=== PATIENT | female | born 1980 | race Caucasian/White ===

== ENCOUNTER → 2016-07-19 | Outpatient (CLI) | payer BC ==
[~2016-07-19] MED LIST: ASPI81TA28 PO; DIPH25CA65 PO; EFF75 PO; MIDO2.5T PO; MONT1TAB3 PO; SUMA25TA12 PO; TRAM-10 PO
--- NOTE | 2016-07-19 17:25 | ECHOCARDIOGRAM REPORT ---
*NOTICE TO RECEIVING CONSTITUTION PARTY AGENCY This information is strictly Confidential and protected under [place] law. [place] law prohibits you from making any further disclosure of this information unless further disclosure is expressly permitted by the written consent of the person to whom it pertains or is authorized by law. A general authorization for the release of medical or other information is not sufficient for this purpose. Hospital accepts no responsibility if the information is made available to any other person, INCLUDING THE PATIENT. Interpretation Summary * Name: JUDIE MEIER Study Date: 07/19/2016 01:13 PM BP: 133/82 mmHg * Patient Location: [facility] HR: 86 * : 1980 (M/d/yyyy) Gender: Female Height: 66 in * Age: 36 yrs Ethnicity: [place] Weight: 132 lb * Ordering Physician: JARET LOUIE MD * Referring Physician: Jaret Louie * Performed By: Mercedes Sutherland * * Reason For Study: STRUCTURAL HEART DISEASE * BSA: 1.7 m2 * The study was technically adequate. * Compared to prior study, there is no significant change. * -- Conclusions -- * Left ventricular systolic function is normal. * Ejection Fraction = 55-60%. * Pulse wave TDI of the anterior and posterior mitral annulas demonstrates normal LV relaxation * No significant valvular pathology. * The interatrial septum was inadequately visualized. Procedure Details * A complete two-dimensional transthoracic echocardiogram was performed (2D, M-mode, Doppler and color flow Doppler). Left Ventricle * The left ventricle is normal in size. * There is no thrombus. * There is normal left ventricular wall thickness. * Ejection Fraction = 55-60%. * Left ventricular systolic function is normal. * The left ventricular wall motion is normal. Right Ventricle * The right ventricle is normal size. * The right ventricular systolic function is normal as assessed by tricuspid annular plane systolic excursion (TAPSE) (normal >1.5 cm). Atria * The left atrial size is normal. * Right atrial size is normal. * The interatrial septum was inadequately visualized. Mitral Valve * The mitral valve is normal. * There is no mitral valve stenosis. * Significant mitral regurgitation is absent. Tricuspid Valve * The tricuspid valve is normal. * There is no tricuspid stenosis. * There is mild tricuspid regurgitation. Aortic Valve * The aortic valve is trileaflet. * Aortic stenosis is absent. * There is no significant aortic regurgitation. Pulmonic Valve * The pulmonary valve is not well seen, but the Doppler examination is normal without significant regurgitation or stenosis. Great Vessels * The aortic root is normal size. Pericardium/Pleural * There is no pericardial effusion. Great Vessels * Normal inferior vena cava diameter and respiratory variation suggests normal central venous pressure. Left Ventricular Diastolic Function * Pulse wave TDI of the anterior and posterior mitral annulas demonstrates normal LV relaxation MMode 2D Measurements and Calculations IVSd 0.87 cm IVSs 1.2 cm LVIDd 4.4 cm LVIDs 3.0 cm LVPWd 0.62 cm LVPWs 1.3 cm IVS/LVPW 1.4 FS 31.8 % EDV(Teich) 89.1 ml ESV(Teich) 35.7 ml EF(Teich) 60.0 % EDV(cubed) 87.0 ml ESV(cubed) 27.6 ml EF(cubed) 68.2 % % IVS thick 38.5 % % LVPW thick 113.9 % LV mass(C)d 101.0 grams LV mass(C)dI 60.3 grams/m\S\2 LV mass(C)s 120.3 grams LV mass(C)sI 71.8 grams/m\S\2 CO(Teich) 4.6 l/min CI(Teich) 2.7 l/min/m\S\2 SV(Teich) 53.5 ml SI(Teich) 31.9 ml/m\S\2 CO(cubed) 5.1 l/min CI(cubed) 3.0 l/min/m\S\2 SV(cubed) 59.3 ml SI(cubed) 35.4 ml/m\S\2 ACS 1.3 cm LA dimension 2.7 cm asc Aorta Diam 1.9 cm LVOT diam 1.8 cm LVOT area 2.6 cm\S\2 LVAd ap4 29.3 cm\S\2 LVLd ap4 8.6 cm EDV(MOD-sp4) 82.0 ml LVAs ap4 17.1 cm\S\2 LVLs ap4 7.4 cm ESV(MOD-sp4) 33.0 ml EF(MOD-sp4) 59.8 % LVAd ap2 28.0 cm\S\2 LVLd ap2 8.2 cm EDV(MOD-sp2) 82.0 ml LVAs ap2 15.5 cm\S\2 LVLs ap2 6.6 cm ESV(MOD-sp2) 31.0 ml EF(MOD-sp2) 62.2 % CO(MOD-sp4) 4.2 l/min CI(MOD-sp4) 2.5 l/min/m\S\2 SV(MOD-sp4) 49.0 ml SI(MOD-sp4) 29.2 ml/m\S\2 CO(MOD-sp2) 4.4 l/min CI(MOD-sp2) 2.6 l/min/m\S\2 SV(MOD-sp2) 51.0 ml SI(MOD-sp2) 30.4 ml/m\S\2 Doppler Measurements and Calculations MV E max vira 75.1 cm/sec MV dec time 0.44 sec Ao V2 max 126.0 cm/sec Ao max PG 6.3 mmHg Ao max PG (full) 2.8 mmHg CHRISTIAN(V,A) 2.0 cm\S\2 CHRISTIAN(V,D) 2.0 cm\S\2 LV V1 max PG 3.5 mmHg LV V1 max 94.0 cm/sec PA V2 max 69.1 cm/sec PA max PG 1.9 mmHg PI end-d vira 97.7 cm/sec
== END | disposition home or self-care (01) ==
LOC: C.CPL 12:52
PROVIDERS: ATTEND Internal Medicine Clinical Cardiac Electrophysiology
DX: I48.91 Unspecified atrial fibrillation (principal); I51.9 Heart disease, unspecified

== ENCOUNTER → 2016-10-14 | Outpatient (CLI) | payer BC ==
[2016-10-18 06:19] LABS: ANA SCREEN NEGATIVE (NEGATIVE); DNA ds CRITHIDIA NEGATIVE (NEGATIVE); Rheumatoid Factor 10 IU/mL (<14); SSB Ab <1.0 NEG AI (<1.0 NEGATIVE); Scleroderma Ab <1.0 NEG AI (<1.0 NEGATIVE); Sm/RNP <1.0 NEG AI (<1.0 NEGATIVE)
== END | disposition home or self-care (01) ==
LOC: C.LAB 10:48
PROVIDERS: ATTEND Psychiatry & Neurology Neurology
DX: G43.709 Chronic migraine without aura, not intractable, without status migrainosus (principal); R20.2 Paresthesia of skin; M35.9 Systemic involvement of connective tissue, unspecified

== ENCOUNTER → 2016-12-23 | Outpatient (CLI) | payer BC ==
[~2016-12-23] MED LIST changes: -DIPH25CA65 PO; -EFF75 PO; -MIDO2.5T PO; -MONT1TAB3 PO
--- NOTE | 2017-01-06 16:18 | EEG Procedure Note ---
EEG Procedure Note Date of Service Dec 23, 2016. Start / End Times Start Time: 12/23/16 at 3:04pm End Time: 12/25/16 at 2:31pm Referring Physician Hazel Quresih History 36 year old female with seizure like activity. 48hr ambulatory EEG for further evaluation of possible seizure etiology and spell capture. Home Medication List Scheduled Aspirin (Aspirin Ec), 81 MG PO DAILY Sumatriptan Succinate (Imitrex), 25 MG PO PRN Scheduled PRN Tramadol (Ultram), 1 TAB PO Q6 PRN for Pain Description This is a 21 electrode ambulatory EEG with a single channel dedicated to limited EKG. The electrodes were placed in accordance with the International 10- 20 system. Good technical quality when asleep and fair technical quality when awake secondary to muscle and movement artifact. O2 disconnection artifact after 6am and O1 disconnection artifact after 8am on 12/24. Multiple lead disconnection artifact after 5am on 12/25 limiting read of EEG after this time. At the start of the recording the patient was in an awake state. The background was well organized and composed of symmetric mixed alpha and beta frequencies. There was a well formed symmetric moderate amplitude posterior dominant rhythm of 10-11Hz that was reactive to eye opening and closure. Sleep was indicated by vertex waves, symmetric sleep spindles, and slow wave sleep. Patient journal was not returned. Interpretation This is a normal 48hr ambulatory EEG There was no electrographic seizures or epileptiform discharges. Clinical Correlation A normal EEG does not rule out epilepsy if there is a strong clinical suspicion or for spell types not captured.
== END | disposition home or self-care (01) ==
LOC: C.NEUR 12:25
PROVIDERS: ATTEND Psychiatry & Neurology Neurology
DX: R56.9 Unspecified convulsions (principal)

== ENCOUNTER 2017-01-30 18:07 | Emergency (ER) | payer BC ==
[~2017-01-30] VITALS: Ht 167.6 cm; Wt 75.0 kg
[2017-01-30] MEDS ORDERED: ALBUT/IPRATROP 3MG/0.5MG NEB 3 ML VIAL INH STA (18:19)
[2017-01-30 18:20] VITALS: TEMP 36.8; Ht 167.6 cm; Wt 75.0 kg
[2017-01-30] MEDS ORDERED: SODIUM CHLORIDE 0.9% 500ML 500 ML IV STA (18:23)
[2017-01-30 18:26] VITALS: O2SAT 100
[2017-01-30 18:48] LABS: HEMATOCRIT 37.8 % (37-47); MEAN CELL VOLUME 96.4 fL (80-100); MEAN CORPUSCULAR HEMOGLOBIN 34.2 pg (25-34); MEAN CORPUSCULAR HGB CONC 35.4 g/dl (32-36); MEAN PLATELET VOLUME 9.2 fL (7.4-10.4); PLATELET COUNT 244 K/uL (130-400); RED BLOOD COUNT 3.92 M/uL (4.2-5.4); WHITE BLOOD COUNT 11.66 K/uL (4.8-10.8)
--- NOTE | 2017-01-30 18:57 | DIAGNOSTIC IMAGING REPORT ---
CHEST ONE VIEW PORTABLE CLINICAL HISTORY: Shortness of breath COMPARISON STUDY: 03/04/2016 FINDINGS: The cardiac and mediastinal contours are normal. There is no focal pulmonary consolidation. There is no failure. There are no pleural effusions.[ IMPRESSION: No active disease in the chest. Electronically signed by: Prosper Wallace M.D. 01/30/2017 6:56 PM Dictated Date/Time: 01/30/2017 6:55 PM
[2017-01-30 19:07] LABS: ALT/SGPT 21 U/L (12-78); BLOOD UREA NITROGEN 10 mg/dl (7-18); BUN/CREATININE RATIO 9.6 (10-20); CALCIUM 8.5 mg/dl (8.5-10.1); CARBON DIOXIDE 23 mmol/L (21-32); CHLORIDE 108 mmol/L (98-107); CREATININE 1.03 mg/dl (0.60-1.20); GLUCOSE 95 mg/dl (70-99); POTASSIUM 3.3 mmol/L (3.5-5.1); SODIUM 142 mmol/L (136-145)
[2017-01-30 19:12] LABS: ALB/GLOB RATIO 1.2 (0.9-2); ALKALINE PHOSPHATASE 57 U/L (45-117); AST/SGOT 20 U/L (15-37); CKMB/CK RATIO 1.6 (0-3.0)
[2017-01-30 19:14] LABS: COMPLETE YES; EOSINOPHIL % 0.9 %; LYMPH ABS # 2.73 K/uL (1.2-3.4); LYMPHOCYTE % 23.4 %; NEUTROPHILS % 58.6 %; VARIANT LYM ABS # 1.78 K/uL; VARIANT LYMPHOCYTE % 15.3 %
--- NOTE | 2017-01-30 22:28 | EMERGENCY ROOM VISIT NOTE ---
History Report prepared by Amairani: Michael Jorge Under the Supervision of: Dr. Steve Ramirez D.O. First contact with patient: 18:09 Stated Complaint: DIFF BREATHING History of Present Illness The patient is a 37 year old female who presents to the Emergency Room with complaints of constant difficulty breathing occurring earlier tonight. The patient's notes that the patient was having labored breathing on the ground, and at home he states that it seemed like the patient stopped breathing. Additionally, the patient is complaining of chest pain starting yesterday, a dry cough for a few days, a dry throat, and she has had a fever over 100. She does not take any breathing medications at home. The patient states that she has a history of POTS and a brain tumor. The patient was given epinephrine, Benadryl, and Solu-Medrol en route via ambulance. The patient's states that something similar happened a year ago, and she notes that she was drinking wine earlier. The patient denies any sick contacts at home, and she has not had a heart attack before. The patient's states that the patient took a tramadol for her migraines yesterday. Source of History: patient, EMS Onset: earlier tonight Position: other (global) Quality: other (shortness of breath) Timing: constant Associated Symptoms: + fevers, + cough, + chest pain Review of Systems See HPI for pertinent positives & negatives. A total of 10 systems reviewed and were otherwise negative. Past Medical & Surgical Medical Problems: (1) Cholecystectomy (2) HTN (hypertension) (3) Kidney stone (4) Pyelonephritis (5) UTI (6) [place] Teeth Removal Surgical Problems: (1) Hx of cholecystectomy Family History Diabetes mellitus FH: cancer FHx: heart disease Hypertension Kidney disease Kidney stones Social History Smoking Status: Never Smoker Alcohol Use: none Drug Use: none Marital Status: Housing Status: lives with family Occupation Status: employed Current/Historical Medications Scheduled Aspirin (Aspirin Ec), 81 MG PO DAILY Sumatriptan Succinate (Imitrex), 25 MG PO PRN Scheduled PRN Tramadol (Ultram), 25 TAB PO Q6 PRN for Pain Allergies Coded Allergies: Sulfamethoxazole w/Trimethoprim (Verified Allergy, Severe, welts, joint pain, 03/04/16) Metoprolol (Verified Allergy, Mild, other, 01/30/17) facial swelling Ciprofloxacin (Verified Allergy, Unknown, swelling, 03/04/16) Diltiazem (Verified Allergy, Unknown, LEGS SWELL, 01/30/17) Fludrocortisone (Verified Allergy, Unknown, UNKNOWN, 01/30/17) Fluoxetine (Verified Allergy, Unknown, 03/04/16) Phenothiazines (Verified Allergy, Unknown, UNKNOWN, 01/30/17) Promethazine (Verified Allergy, Unknown, 03/04/16) Physical Exam Vital Signs Date Time Temp Pulse Resp B/P (MAP) Pulse Ox O2 Delivery O2 Flow Rate FiO2 01/30/17 22:35 76 16 124/79 98 01/30/17 21:00 94 16 119/64 98 Room Air 01/30/17 19:15 104 17 121/65 96 Room Air 01/30/17 18:26 100 Room Air 01/30/17 18:24 105 01/30/17 18:20 36.8 123 30 159/57 100 Room Air 01/30/17 18:20 100 Room Air Physical Exam CONSTITUTIONAL/VITAL SIGNS: Reviewed / noted above. GENERAL: Non-toxic in appearance. INTEGUMENTARY: Warm, dry, and [place]. HEAD: Normocephalic. EYES: without scleral icterus or trauma. ENT/OROPHARYNX: clear and moist. LYMPHADENOPATHY/NECK: Is supple without lymphadenopathy or meningismus. RESPIRATORY: Making voluntary stridorous noises with breathing at times. Whispering when speaking. CARDIOVASCULAR: Regular rate and rhythm. GI/ABDOMEN: Soft and nontender. No organomegaly or pulsatile mass. No rebound or guarding. Normal bowel sounds. EXTREMITIES: Warm and well perfused. BACK: No CVA tenderness. NEUROLOGICAL: Intact without focal deficits. PSYCHIATRIC: normal affect. MUSCULOSKELETAL: Normally developed with good muscle tone. Medical Decision & Procedures ER Provider Diagnostic Interpretation: Radiology results as stated below per my review and radiologist interpretation: CHEST ONE VIEW PORTABLE CLINICAL HISTORY: Shortness of breath COMPARISON STUDY: 03/04/2016 FINDINGS: The cardiac and mediastinal contours are normal. There is no focal pulmonary consolidation. There is no failure. There are no pleural effusions.[ IMPRESSION: No active disease in the chest. Electronically signed by: Prosper Wallace M.D. 01/30/2017 6:56 PM Dictated Date/Time: 01/30/2017 6:55 PM Laboratory Results 01/30/17 18:37 Red Blood Count 3.92, Mean Corpuscular Volume 96.4, Mean Corpuscular Hemoglobin 34.2, Mean Corpuscular Hemoglobin Concent 35.4, Mean Platelet Volume 9.2 01/30/17 18:37 Test 01/30/17 18:37 White Blood Count 11.66 K/uL (4.8-10.8) Red Blood Count 3.92 M/uL (4.2-5.4) Hemoglobin 13.4 g/dL (12.0-16.0) Hematocrit 37.8 % (37-47) Mean Corpuscular Volume 96.4 fL (80-100) Mean Corpuscular Hemoglobin 34.2 pg (25-34) Mean Corpuscular Hemoglobin Concent 35.4 g/dl (32-36) Platelet Count 244 K/uL (130-400) Mean Platelet Volume 9.2 fL (7.4-10.4) RDW Standard Deviation 42.2 fL (36.4-46.3) RDW Coefficient of Variation 12.1 % (11.5-14.5) Neutrophils % (Manual) 58.6 % Lymphocytes % (Manual) 23.4 % Variant Lymphocytes % (manual) 15.3 % Monocytes % (Manual) 1.8 % Eosinophils % (Manual) 0.9 % Neutrophils # (Manual) 6.83 K/uL (1.4-6.5) Total Absolute Neutrophils 6.83 K/uL (1.4-6.5) Lymphocytes # (Manual) 2.73 K/uL (1.2-3.4) Absolute Variant Lymphocytes 1.78 K/uL Total Absolute Lymphocytes 4.51 K/uL (1.2-3.4) Monocytes # (Manual) 0.21 K/uL (0.11-0.59) Eosinophils # (Manual) 0.10 K/uL (0-0.5) Anion Gap 11.0 mmol/L (3-11) Est Creatinine Clear Calc Drug Dose 78.9 ml/min Estimated GFR () 81.6 Estimated GFR (Non- 70.4 BUN/Creatinine Ratio 9.6 (10-20) Calcium Level 8.5 mg/dl (8.5-10.1) Total Bilirubin 0.3 mg/dl (0.2-1) Aspartate Amino Transf (AST/SGOT) 20 U/L (15-37) Alanine Aminotransferase (ALT/SGPT) 21 U/L (12-78) Alkaline Phosphatase 57 U/L (45-117) Total Creatine Kinase 86 U/L (26-192) Creatine Kinase MB 1.4 ng/ml (0.5-3.6) Creatine Kinase MB Ratio 1.6 (0-3.0) Troponin I < 0.015 ng/ml (0-0.045) Total Protein 7.3 gm/dl (6.4-8.2) Albumin 4.0 gm/dl (3.4-5.0) Globulin 3.3 gm/dl (2.5-4.0) Albumin/Globulin Ratio 1.2 (0.9-2) Ethyl Alcohol mg/dL 123.0 mg/dl (0-3) Laboratory results as stated above per my review. Medications Administered Medications (Trade) Dose Ordered Sig/Yanna Route Start Time Stop Time Status Last Admin Dose Admin Albuterol/ Ipratropium (Duoneb) 3 ml NOW STAT INH 01/30/17 18:19 01/30/17 18:23 DC 01/30/17 18:31 3 ML Sodium Chloride 500 ml @ 999 mls/hr Q31M STAT IV 01/30/17 18:23 01/30/17 18:53 DC 01/30/17 18:23 999 MLS/HR ECG Indication: SOB/dyspnea Rate (beats per minute): 114 Rhythm: sinus tachycardia Findings: no ectopy, other (No acute injury ) ED Course 180: Previous medical records were reviewed. The patient was evaluated in room B3. A complete history and physical examination was performed. 1818: DuoNeb 3ml INH 1823: Sodium Chloride 500 ml @ 999 mls/hr IV 2226: On reevaluation, the patient is doing well and stable. I discussed the results and findings with the patient. She verbalized agreement of the treatment plan. She was discharged home. Medical Decision Differentials considered include acute myocardial infarction, acute coronary syndrome, myocarditis, pericarditis, pericardial effusions /tamponade, esophageal perforation, pulmonary embolism, pneumonia, pneumothorax, cardiomyopathy, congestive heart, anemia, and COPD/asthma exacerbation. This is a 37-year-old female who presents to the ED with a chief complaint of dry cough for the past 3 days and some difficulty breathing. The states that he has children went to his parents house for Thanksgiving. He was gone about 1-1/2 hours. When he came home, she was sitting behind the bed and seemed to be struggling to breathe. The patient was brought here by EMS. She was treated in route with IV Solu-Medrol, IV Benadryl as well as subcutaneous epinephrine. The patient's vital signs here are stable on her arrival. She is slightly tachycardic and slightly hypertensive. On her exam, she is moving air adequately and her lungs are clear. She has some voluntary upper airway stridor at times. She whispers when speaking but at times her voice comes through. She is in no distress. Her exam was otherwise unremarkable. EKG shows a sinus tach at a rate of 114. CBC is unremarkable. Chemistry panel was unremarkable. Chest x-ray was clear. She was treated with a DuoNeb treatment here. On reassessment, her symptoms have completely resolved. She was felt to be stable for discharge. Medication Reconcilliation Current Medication List: was personally reviewed by me Blood Pressure Screening Patient's blood pressure: Normal blood pressure Impression Primary Impression: Shortness of breath Additional Impression: Asthma attack Scribe Attestation The scribe's documentation has been prepared under my direction and personally reviewed by me in its entirety. I confirm that the note above accurately reflects all work, treatment, procedures, and medical decision making performed by me. Departure Information Dispostion Home / Self-Care Referrals Shiv Juarez M.D. (PCP) Forms HOME CARE DOCUMENTATION FORM, IMPORTANT VISIT INFORMATION Patient Instructions Asthma - [facility], COPD - [facility], Croup - [facility], My [facility] Additional Instructions Take Benadryl as needed for any recurrence of symptoms. Follow-up with your doctor for further care and evaluation in 1-5 days if symptoms persist. Return to the emergency department for worsening or new symptoms or any concerns. You have been examined and treated today on an emergency basis only. This is not a substitute for, or an effort to provide, complete comprehensive medical care. It is impossible to recognize and treat all injuries or illnesses in a single emergency department visit. It is therefore important that you follow up closely with your doctor. Call as soon as possible for an appointment. Problem Qualifiers
[2017-01-30 22:35] VITALS: BP 124/79; PULSE 76; O2SAT 98
== END 2017-01-30 22:36 | disposition home or self-care (01) ==
LOC: EDBD 18:07 → C.EDB 18:08
DX: R06.09 Other forms of dyspnea (principal); J45.909 Unspecified asthma, uncomplicated; I10 Essential (primary) hypertension; Z83.3 Family history of diabetes mellitus; Z82.49 Family history of ischemic heart disease and other diseases of the circulatory system; Z79.82 Long term (current) use of aspirin

== ENCOUNTER 2017-07-20 17:44 | Emergency (ER) | payer BC ==
[~2017-07-20] VITALS: Ht 167.6 cm; Wt 74.7 kg
[~2017-07-20 17:44] MED LIST changes: +ALBU18002 INH; +CETI10TA84 PO; +EPP3/2 IM; +HYDR-3126 PO
[2017-07-20 17:49] VITALS: TEMP 37.1; Ht 167.6 cm; Wt 74.7 kg
[2017-07-20] MEDS ORDERED: DEXAMETHASONE SOD INJ 4 MG/ML VIAL IV STA (18:05)
[2017-07-20] MEDS ORDERED: ONDANSETRON INJ 2 MG/ML 2 ML VIAL IV STA (18:05)
[2017-07-20] MEDS ORDERED: DiphenhydrAMINE HCL 50 MG/ML VIAL IV STA (18:05)
[2017-07-20] MEDS ORDERED: RANITIDINE HCL 50 MG/100 ML D5W IV STA (18:05)
[2017-07-20 18:09] VITALS: O2SAT 92
--- NOTE | 2017-07-20 18:44 | EMERGENCY ROOM VISIT NOTE ---
History Report prepared by Amairani: Michael Jorge Under the Supervision of: Dr. Juan Manuel Moraes M.D. First contact with patient: 17:56 Chief Complaint: ALLERGIC REACTION Stated Complaint: PEANUT ALLERGY, ALLERGIC REACTION History of Present Illness The patient is a 37 year old female who presents to the Emergency Room with complaints of a persistent allergic reaction occurring prior to arrival. The patient states that she was eating some fries that had been cooked in peanut oil. She states that she is allergic to peanuts, tree nuts, dust, mold, and milk. She states that she started to feel her mouth tingling, tongue swelling, nausea, and she states that her face is itchy and red. The patient states that she then injected herself in the right thigh with the EpiPen, though she is unsure if it all got in since it was coming out before injection, and she also accidentally pricked her hand with the EpiPen due to her shakiness. The patient did not take any other medications. She has a history of mast cell activation syndrome. Pt denies LOC, headache, fevers, chills, diaphoresis, visual changes, neck pain, chest pain, breathing difficulties, vomiting, abdominal pain, back pain, melena, hematochezia, urinary symptoms, numbness, weakness, lymphadenopathy, rash, or other complaints. Source of History: patient Onset: prior to arrival Position: other (generalized) Quality: other (allergic reaction) Timing: other (persistent) Associated Symptoms: + nausea Note: Associated symptoms: mouth tingling, tongue swelling, and her face is itchy and red Review of Systems See HPI for pertinent positives and negatives. A total of ten systems were reviewed and were otherwise negative. 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 (3) HTN (hypertension) (4) Kidney stone (5) Patent foramen ovale (6) Postural orthostatic tachycardia syndrome (7) PXE (pseudoxanthoma elasticum) (8) Pyelonephritis (9) UTI (10) [place] Teeth Removal Surgical Problems: (1) Hx of cholecystectomy Family History Diabetes mellitus FH: cancer FHx: heart disease Hypertension Kidney disease Kidney stones Social History Smoking Status: Never Smoker Alcohol Use: none Drug Use: none Marital Status: Housing Status: lives with family Occupation Status: employed Current/Historical Medications Scheduled Aspirin (Aspirin Ec), 81 MG PO DAILY Cetirizine (Zyrtec), 10 MG PO DAILY Epinephrine (Epipen), 0.3 MG IM UD Ivabradine HCl (Corlanor), 5 MG PO BID Prednisone (Prednisone), 50 MG PO DAILY Sumatriptan Succinate (Imitrex), 25 MG PO PRN Venlafaxine Hcl (Venlafaxine Hcl Er), 37.5 MG PO BID Scheduled PRN Albuterol Sulfate (Proair Respiclick), 2 PUFF INH Q4 PRN for prn Furosemide (Lasix), 20 MG PO DAILY PRN for SWELLING Hydroxyzine Hcl (Atarax), 25 MG PO DAILY PRN for Allergic Reaction Tramadol (Ultram), 25 TAB PO Q6 PRN for Pain Allergies Coded Allergies: Sulfamethoxazole w/Trimethoprim (Verified Allergy, Severe, welts, joint pain, 07/20/17) Metoprolol (Verified Allergy, Mild, other, 07/20/17) facial swelling Ciprofloxacin (Verified Allergy, Unknown, swelling, 07/20/17) Diltiazem (Verified Allergy, Unknown, LEGS SWELL, 07/20/17) Fludrocortisone (Verified Allergy, Unknown, UNKNOWN, 07/20/17) Fluoxetine (Verified Allergy, Unknown, 07/20/17) Milk (Unverified Allergy, Unknown, ANAPHYLAXIS, 07/20/17) NUTS (Unverified Allergy, Unknown, ANAPHYLAXIS, 07/20/17) Phenothiazines (Verified Allergy, Unknown, UNKNOWN, 07/20/17) Promethazine (Verified Allergy, Unknown, 07/20/17) Physical Exam Vital Signs Date Time Temp Pulse Resp B/P (MAP) Pulse Ox O2 Delivery O2 Flow Rate FiO2 07/20/17 19:14 80 18 100 Room Air 07/20/17 19:00 108/72 07/20/17 18:51 110/67 07/20/17 18:45 81 18 110/88 100 Room Air 07/20/17 18:44 86 18 100 07/20/17 18:31 100 Room Air 07/20/17 18:09 92 Room Air 07/20/17 18:02 93 07/20/17 17:49 37.1 101 18 150/87 97 Room Air Physical Exam GENERAL: Awake, alert, mildly anxious-appearing, in no distress HENT: Normocephalic, atraumatic. Oropharynx unremarkable. Flushed appearance to the face. EYES: Normal conjunctiva. Sclera non-icteric. NECK: Supple. No nuchal rigidity. FROM. No masses. RESPIRATORY: Clear to auscultation. No wheezes. No rales. Normal respiratory effort. CARDIAC: Normal rate. Normal rhythm. No murmurs. No rubs. Extremities warm and well perfused. Pulses equal. No JVD. GI: Soft, non-distended. No tenderness to palpation. No rebound or guarding. No masses. RECTAL: Deferred. MUSCULOSKELETAL: Atraumatic. Chest examination reveals no tenderness. The back is symmetrical on inspection without obvious abnormality. There is no CVA tenderness to palpation. No joint edema. UPPER EXTREMITIES: Punctate puncture wound to the left palp with minimal blanched area surrounding the puncture wound. Remainder fo the hand is normal without blanching. LOWER EXTREMITIES: Calves are equal size bilaterally and non-tender. No edema. No discoloration. NEURO: Normal sensorium. No sensory or motor deficits noted. SKIN: No rash or jaundice noted. Medical Decision & Procedures Medications Administered Medications (Trade) Dose Ordered Sig/Yanna Route Start Time Stop Time Status Last Admin Dose Admin Ranitidine HCl (zANTac IV) 50 mg NOW STAT IV 07/20/17 18:05 07/20/17 18:07 DC 07/20/17 18:40 50 MG Ondansetron HCl (Zofran Inj) 4 mg NOW STAT IV 07/20/17 18:05 07/20/17 18:07 DC 07/20/17 18:17 4 MG Diphenhydramine HCl (Benadryl Inj) 50 mg NOW STAT IV 07/20/17 18:05 07/20/17 18:07 DC 07/20/17 18:18 50 MG Dexamethasone Sodium Phosphate (Decadron Inj) 10 mg NOW STAT IV 07/20/17 18:05 07/20/17 18:07 DC 07/20/17 18:18 10 MG ED Course 180: The patient was evaluated in room C7. A complete history and physical exam was performed. 180: Decadron 10mg IV, Benadryl 50mg IV, Zofran 4mg IV, Zantac 50mg IV 0: Patient reassessed and has had all symptoms resolved. She feels well. Discussed conservative management with close outpatient follow-up. The patient has had experience with this type of reaction in the past. She has an EpiPen prescription of her pharmacy but requested to have 1 to go as her pharmacy is closed. This was ordered. She will follow-up with her primary. 193: The patient was reassessed. She has no recurrence of symptoms. She feels well and comfortable with the plan. She was discharged. Medical Decision Prior records/ancillary studies reviewed. Triage Nursing notes reviewed and agree them. Additional history obtained from her significant other. The patient's history was concerning for possible allergic reaction. Differential diagnosis: Etiologies such as allergic reaction, anaphylaxis, urticaria, Linares-Edvin syndrome, toxic epidermal necrolysis, erythema multiforme, cellulitis, as well as others were entertained. Physical examination: As above. ER treatment provided: Continuous cardiac monitoring Benadryl 50 mg IV Ranitidine 50 mg IV Decadron 10 mg IV Zofran IV On reassessment the patient felt better. Diagnostic interpretation by me: Deferred It appears the patient had an allergic reaction. The above treatment did well to reverse the symptoms. After prolonged monitoring and frequent reassessments the patient did very well and symptoms resolved. By the evaluation outlined above emergent etiologies such as airway compromise, Linares-Edvin syndrome, toxic epidermal necrolysis, erythema multiforme, cellulitis, as well as others were deemed relatively unlikely. The patient was informed about the findings as listed above. All questions were answered and she will pleased with the treatment. Return instructions were outlined and the patient was discharged in stable condition. Outpatient prescription management: EpiPen prednisone Referral: The patient was referred back to her primary care physician for follow-up in 2- 3 days for a recheck of the current condition. Impression Primary Impression: Allergic reaction Scribe Attestation The scribe's documentation has been prepared under my direction and personally reviewed by me in its entirety. I confirm that the note above accurately reflects all work, treatment, procedures, and medical decision making performed by me. Departure Information Dispostion Home / Self-Care Prescriptions Prednisone (Prednisone) 50 Mg Tab 50 MG PO DAILY for 4 Days, #4 TAB Prov: Juan Manuel Moraes MD 07/20/17 Referrals Shiv Juarez M.D. (PCP) Patient Instructions My [facility] Additional Instructions ALLERGIC REACTION INSTRUCTIONS: DO NOT drive, drink alcohol, operate machinery, or perform dangerous activities today. You were given medications in the ER that can affect your ability to safely function or operate a vehicle. Epi-Pen: Use one injection as instructed for severe allergic reactions associated with shortness of breath, difficulty breathing, or throat or tongue swelling. If you use this injection call 911 or proceed immediately to the nearest Emergency Room. Prednisone 50mg: Once daily until the prescription is finished. It is best to take this earlier in the day as some patients note occasional difficulty falling asleep when taken in the late evening. Diphenhydramine(Benadryl) 25mg: use 25 to 50 mg every six hours for swelling, itching, or hives. This medication is sedating and will cause drowsiness. Avoid alcohol, operating machinery or dangerous equipment, working on ladders or roofs, DRIVING, or situations where being under the influence may be dangerous. Zantac 75: Take two pills twice a day along with Benadryl as needed for swelling , itching, or hives. Most people know this for its affect on the stomach, but it also acts similar to, but less potent than Benadryl for allergic reactions. Both the Benadryl and the Zantac are available [id number]. Continue current medications. Return to the emergency department for worsening of your rash, swelling of your face, lips, tongue, or throat, difficulty breathing, vomiting, or as needed. Follow-up with your primary care physician in 2 to 3 days for a recheck of your current condition.
[2017-07-20] MEDS ORDERED: VENL-271 PO (18:45)
[2017-07-20] MEDS ORDERED: IVAB1.7T PO (18:45)
[2017-07-20] MEDS ORDERED: HYDR-3124 PO (18:45)
[2017-07-20] MEDS ORDERED: FURO-85 PO (18:45)
[2017-07-20 19:19] VITALS: PULSE 84; O2SAT 99
[2017-07-20] MEDS ORDERED: EPINEPHRINE ADULT AUTO-INJECT 0.3 MG SYR IM STA (19:19)
[2017-07-20] MEDS ORDERED: PRED50TA PO (19:20)
[2017-07-20 19:31] VITALS: BP 110/66
== END 2017-07-20 19:42 | disposition home or self-care (01) ==
LOC: C.EDB 17:45 → C.EDC 19:42
DX: T78.40XA Allergy, unspecified, initial encounter (principal); X58.XXXA Exposure to other specified factors, initial encounter; Z91.010 Allergy to peanuts; Z91.018 Allergy to other foods; Z91.09 Other allergy status, other than to drugs and biological substances; Z91.011 Allergy to milk products; Q79.6 Ehlers-Danlos syndromes; I10 Essential (primary) hypertension; Q21.1 Atrial septal defect; Z87.440 Personal history of urinary (tract) infections; Z87.442 Personal history of urinary calculi; Z90.49 Acquired absence of other specified parts of digestive tract; Z98.818 Other dental procedure status; Z83.3 Family history of diabetes mellitus; Z82.49 Family history of ischemic heart disease and other diseases of the circulatory system; Z84.1 Family history of disorders of kidney and ureter; Z79.82 Long term (current) use of aspirin; Z88.1 Allergy status to other antibiotic agents; Z88.2 Allergy status to sulfonamides; Z88.8 Allergy status to other drugs, medicaments and biological substances

== ENCOUNTER → 2017-09-26 | Outpatient (CLI) | payer BC ==
[~2017-09-26] MED LIST changes: +FURO-85 PO; +GABA-1693 PO; +GADAVIST IV PRN; +HYDR-3124 PO; -HYDR-3126 PO; +IVAB1.7T PO; -SUMA25TA12 PO; +VENL75TA4 PO
--- NOTE | 2017-09-26 11:30 | DIAGNOSTIC IMAGING REPORT ---
BRAIN COMBO CLINICAL HISTORY: 37 years-old Female presenting with R56.9 Seizure-like activity, blank stares, falls, numbness and migraines. TECHNIQUE: Multisequence, multiplanar MR imaging of the brain was performed before and after the administration of intravenous contrast. IV contrast: 7 mL of Gadavist. COMPARISON: 03/04/2016. FINDINGS: Localizer images: Unremarkable. Ventricles and sulci normal in size. Unchanged multilobular 7 mm mildly T2 hyperintense lesion at the conte-white junction of the lateral aspect of the right temporal lobe (series 8 image 9). This is nonenhancing. No restricted diffusion. No other signal abnormality of the brain parenchyma. No mass effect or midline shift. No restricted diffusion to suggest acute ischemia. No hemorrhage. No extra-axial fluid collection. T2 skull base flow voids preserved. No abnormal parenchymal enhancement. Bone marrow signal intensity within the calvarium within normal limits. IMPRESSION: 1. Stable focus of abnormal signal at the conte-white junction in the right temporal lobe. Neoplasm is considered highly unlikely given the stability of the lesion. This remains nonenhancing. Differential considerations include demyelinating disease or prior insult. Electronically signed by: Shiva Millan M.D. 09/26/2017 11:28 AM Dictated Date/Time: 09/26/2017 11:17 AM
== END | disposition home or self-care (01) ==
LOC: C.MRIBC 08:49
PROVIDERS: ATTEND Physician Assistant
DX: R56.9 Unspecified convulsions (principal)